=== PATIENT | female | born 1995 | race Caucasian/White ===

== ENCOUNTER 2016-08-18 10:10 | Outpatient (CLI) | payer OTHER ==
--- NOTE | 2016-08-18 13:11 | DIAGNOSTIC IMAGING REPORT ---
PROCEDURE: US LTD BREAST ULTRASOUND - LT INDICATION: Palpable area upper outer left breast. Prior skin biopsy. TECHNIQUE: High resolution rosado scale and color Doppler sonographic images of the left breast. COMPARISON: None. FINDINGS: There is a small 3 mm subcutaneous sebaceous cyst in the anterior upper outer quadrant (most likely incidental finding). The rest of the upper outer left breast demonstrates normal parenchyma. No evidence of mass or underlying abnormality. Diagnostic mammogram is not indicated at this time. IMPRESSION: 1. There is a 3 mm subcutaneous sebaceous cyst in the area in anterior left upper outer quadrant left breast (may the incidental). 2. Otherwise negative left breast ultrasound. 3. Findings discussed with the patient. RESULT CODE: 2- Benign finding(s). A. A negative report should not delay biopsy if a dominant or clinically suspicious mass is present. 10-15% of cancers are not identified by x-ray. B. A negative report may reinforce clinical impression. C. Adenosis and dense breasts may obscure an underlying neoplasm. D. False positive reports average 6-10%. E.. A yearly screening mammogram is recommended. A reminder letter will be scheduled.
== END 2016-08-18 23:00 ==
LOC: US SRH 10:10
DX: N60.82 Other benign mammary dysplasias of left breast (principal)